=== PATIENT | female | born 1950 | race Caucasian/White ===

== ENCOUNTER 2019-06-06 19:33 | Emergency (ER) | payer MEDICARE ==
[~2019-06-06] VITALS: Ht 160 cm; Wt 94.3 kg
[~2019-06-06 19:33] MED LIST: ALBUTEROL SULF8.5 GM PO; AMIODARONE PO; ASPIR 8181 MG PO; BCOMPLEX PO; CLARITIN10 M2 PO; CRESTOR10 MG PO; DEPAKOTE ER500 MG PO; DEPO-ESTRADIO5 MG/ML IM; DIGOXIN125 MCG PO; DIVALPROEX SOD500 M1 PO; ESTRADIOL1 MG PO; FLUTICASONE PRO16 GM; FUROSEMIDE40 MG PO; LASIX80 MG PO; LEVAQUIN500 MG PO; LISINOPRIL10 MG PO; MEDROL4 MG/DOSE-; METOPROLOL SUCC25 MG PO; MUCINEX600 MG PO; NIACIN250 M1 PO; NIASPAN1000 MG PO; ONE-A-DAY ESSE1 EACH PO; POTASSIUM CHLO20 ME1 PO; PREDNISONE10 MG PO; PROAIR HFA INH8.5 GM; SYNTHROID25 MCG PO; TESSALON PERLE100 MG PO; TRAMADOL HCL100 MG PO; anoro ellipta INH; losartan PO
--- OUTSIDE RECORDS SUMMARY | 2019-06-06 19:36 | XMS REPORT ---
[facility] Address Unknown Phone Unavailable Care Team Providers Care Switchgear Repairer Name Role Phone Eligio LAW Unavailable Unavailable Problems This patient has no known problems. Allergies, Adverse Reactions, Alerts This patient has no known allergies or adverse reactions. Medications This patient has no known medications. Results Test Description Test Time Test Comments Text Results Atomic Results Result Comments BONE DXA DUAL ENERGY 2019-06-05 15:55:00 [place] [address] Patient Name: VIOLET FLOOD MR #: [id number] : 1950 Age/Sex: 69/F Req #: [id number] Adm Physician: Ordered by: MAGALIS LAW MD Report #: [id number] Location: DX Room/Bed: Procedure: [id number] DX/BONE DXA DUAL ENERGY Exam Date: Exam Time: REPORT STATUS: Signed Exam: Bone mineral density study. History: Osteopenia. Comparison: None Discussion: Evaluation of the left hip and lumbar spine was performed utilizing DEXA Hologic bone densitometer. The study is technically adequate. Left hip total bone mineral density: 0.806gm/cm2, T- score is -1.1, Z-score is 0.2. Left hip femoral neck bone mineral density: 0.627gm/cm2, T-score is -2.0, Z-score is -0.4. Lumbar spine total bone mineral density:1.012gm/cm2, T-score is-0.3, Z-score is 1.6. Impression: 1. Osteopenia of the left hip, fracture risk is increased 2. Normal bone mineral density of the lumbar spine, fracture risk is not increased. Least significant change (LSC) for bone mineral density as provided by video systems engineer is 0.023 g/cm2 for lumbar spine and 0.027 g/cm2 for total hip. 10 -year fracture risk per WHO Fracture Risk Assessment Tool (FRAX) for: Major osteoporotic fracture is 10.0% Hip fracture is 1.6% The above fracture probability is calculated for an untreated patient. Fracture probably may be lower if the patient has received treatment. All treatment decisions require clinical judgment and consideration of individual patient factors, including patient preferences, comorbidities, previous drug use and risk factors not captured in the FRAX model (e.g. frailty, falls, vitamin D deficiency, increased bone turnover, interval significant decline in BMD). The patient's fracture risk is compared to an age-matched control. Medical evaluation for secondary causes of low bone bone mineral density may be appropriate. Correlate clinically for the necessity and timing of the next bone mineral density study. Signed by: Dr. Papo Nicole M.D. on 06/05/2019 3:56 PM Dictated By: PAPO NICOLE MD, MD [id number] Transcribed By: SALENA on 06/05/19 3612 COPY TO: MAGALIS LAW MD CT ABDOMEN/PELVIS W 2019-06-04 16:07:00 [place] [address] Patient Name: VIOLET FLOOD MR #: [id number] : 1950 Age/Sex: 69/F Req #: [id number] Adm Physician: Ordered by: MAGALIS LAW MD Report #: [id number] Location: DX Room/Bed: Procedure: [id number] CT/CT ABDOMEN/PELVIS W Exam Date: 06/04/19 Exam Time: 1544 REPORT STATUS: Signed EXAMINATION: CT of the abdomen and pelvis with contr ast. TECHNIQUE: Spiral CT images of the abdomen and pelvis were performed from the lung bases to the lesser trochanters after the intravenous administration of 100 cc Isovue-370 and the oral administration of Gastrografin. Coronal and sagittal reformatted images were obtained. COMPARISON: None. CLINICAL HISTORY:Left lower quadrant pain DISCUSSION: ABDOMEN/PELVIS: LOWER THORAX:Median sternotomy wires partially visualized. Calcified granuloma in the left lower lobe. Linear and reticular opacities in the dependent lower lobes compatible with subsegmental atelectasis. No pleural or pericardial effusion. HEPATOBILIARY: 1.6 cm hypoattenuating lesion (5-10 Hounsfield units) in segment 8 at the dome compatible with a simple cyst. Subcentimeter hypoattenuating lesion in segment 8 is too small to further characterize but may represent an additional cyst. No additional focal hepatic lesion or intrahepatic biliary ductal dilatation. Multiple radiopaque calculi within the gallbladder lumen. No pericholecystic inflammation. No common bile duct filling defects. SPLEEN: No splenomegaly. PANCREAS: No focal masses or ductal dilatation. ADRENALS: No adrenal nodules. KIDNEYS/URETERS: No hydronephrosis, stones, or solid mass lesions. PELVIC ORGANS/BLADDER: Urinary bladder is collapsed and poorly evaluated. Uterus is not identified and has been removed. 2.5 cm simple cyst in the right adnexa. PERITONEUM/RETROPERITONEUM: No free air or fluid. LYMPH NODES: No pelvic sidewall, retroperitoneal, or mesenteric lymphadenopathy. VESSELS: Atherosclerotic calcification of the abdominal aorta, major branch vessels, and iliac arterial systems without aneurysmal dilatation. Incidental note of a circumaortic left renal vein. Portal vein, splenic vein, and central superior mesenteric vein are patent. GI TRACT: The large bowel shows no distention or wall thickening. There are scattered diverticula along the sigmoid colon without adjacent inflammatory change. The appendix is normal. There is no small bowel dilatation to suggest obstruction. BONES AND SOFT TISSUE: No osseous destructive lesions. Mild degenerative disc changes and facet arthropathy of the lower lumbar spine. No focal soft tissue abnormalities. IMPRESSION: No acute intra-abdominal or pelvic CT abnormalities. Cholelithiasis without CT findings of acute cholecystitis. Large bowel diverticulosis without evidence of diverticulitis. Atherosclerotic vascular disease. 2.5 cm right ovarian cyst without suspicious features is almost certainly benign. However, in a postmenopausal patient, a follow-up transvaginal pelvic ultrasound in one year is suggested to assess for stability or resolution. Signed by: Dr. Jia Steen M.D. on 06/04/2019 4:18 PM Dictated By: JIA STEEN MD [id number] Transcribed By: SALENA on 06/04/19 1618 COPY TO: MAGALIS LAW MD
--- NOTE | 2019-06-06 20:22 | Diagnostic Imaging Report ---
EXAMINATION: PA and lateral views of the chest. COMPARISON: None CLINICAL HISTORY: chest pain DISCUSSION: Lines/tubes: Sternotomy wires. Lungs: The lungs are well inflated and clear. No pneumonia or pulmonary edema. Pleura: No pleural effusion or pneumothorax. Heart and mediastinum: The cardiomediastinal silhouette is normal. Bones and soft tissues: No acute bony abnormalities. IMPRESSION: No acute cardiopulmonary abnormalities. Signed by: Dr. Saleem Broderick M.D. on 06/06/2019 8:19 PM
== END 2019-06-06 21:39 | disposition home or self-care (01) ==
LOC: ER 19:33
DX: R07.89 Other chest pain (principal); R10.13 Epigastric pain
CPT/HCPCS: 71046; 99282

== ENCOUNTER → 2020-02-20 | Outpatient (CLI) | payer MEDICARE ==
--- NOTE | 2020-02-20 14:20 | Diagnostic Imaging Report ---
HISTORY : Follicular cyst of the right adnexa COMPARISON : CT dated 06/04/2019 Comment: Ultrasound examination of the pelvis was performed transabdominally and transvaginally. Uterus is surgically absent. The ovaries are not well visualized due to overlying bowel gas. In the region of the right adnexa there is a hypoechoic cyst measuring 2.2 x 2.0 x 1.9 cm without suspicious solid component or internal vascularity. IMPRESSION : Stable 2.5 cm cyst of the right ovary. The ovaries themselves are not well evaluated by ultrasound technique due to overlying and adjacent bowel gas. Uterus is surgically absent. Signed by: Ricky Vizcarra MD on 02/20/2020 2:17 PM
== END ==
LOC: US 12:31
PROVIDERS: ATTEND Family Medicine
DX: N83.01 Follicular cyst of right ovary (principal)
CPT/HCPCS: 76830; 76856

== ENCOUNTER 2021-11-10 19:07 | Emergency (ER) | payer MEDICARE ==
[~2021-11-10] VITALS: Ht 160 cm; Wt 78.5 kg
[2021-11-10 20:39] LABS: BASOPHILS # (AUTO) 0.1 (0.0-0.1); BASOPHILS % 0.7 % (0.0-1.0); EOSINOPHILS # (AUTO) 0.3 (0.0-0.4); EOSINOPHILS % 3.1 % (0.0-6.0); HEMATOCRIT 31.5 % (34.2-44.1); HEMOGLOBIN 8.8 g/dL (12.0-16.0); LYMPHOCYTES # (AUTO) 1.3 (1.0-3.2); LYMPHOCYTES % 13.2 % (18.0-39.1); MEAN CORPUSCULAR HEMOGLOBIN 23.4 pg (28-32); MEAN CORPUSCULAR HGB CONC 27.9 g/dL (31-35); MEAN CORPUSCULAR VOLUME 83.8 fL (81-99); MONOCYTES # (AUTO) 0.9 (0.2-0.8); MONOCYTES % 9.7 % (4.4-11.3); NEUTROPHILS # (AUTO) 6.9 (2.1-6.9); NEUTROPHILS % 72.5 % (38.7-80.0); PLATELET COUNT 385 x10e3/uL (140-360); RED BLOOD COUNT 3.76 x10e6/uL (3.6-5.1); RED CELL DISTRIBUTION WIDTH 20.9 % (11.7-14.4)
[2021-11-10 21:00] LABS: ALBUMIN 2.8 g/dL (3.5-5.0); ALBUMIN/GLOBULIN RATIO 0.8 (0.8-2.0); ANION GAP 15.3 mmol/L (8-16); CALCIUM 8.9 mg/dL (8.4-10.2); CREATININE, SERUM 1.33 mg/dL (0.57-1.11); POTASSIUM 4.3 mmol/L (3.5-5.1)
[2021-11-10 21:08] LABS: CREATINE KINASE MB 0.6 ng/mL (0-5.0)
== END 2021-11-10 22:24 | disposition home or self-care (01) ==
LOC: ER 19:21
DX: R53.1 Weakness (principal); J44.9 Chronic obstructive pulmonary disease, unspecified; E78.5 Hyperlipidemia, unspecified; D64.9 Anemia, unspecified; E78.00 Pure hypercholesterolemia, unspecified; M10.9 Gout, unspecified; R94.31 Abnormal electrocardiogram [ECG] [EKG]
CPT/HCPCS: 36415; 71045; 80053; 82550; 82553; 83880; 84484; 85025; 93005; 99283

== ENCOUNTER → 2022-01-14 | Outpatient (CLI) | payer MEDICARE ==
[~2022-01-14] MED LIST changes: +ALLOPURINOL300 MG PO; +ATORVASTATIN CA10 MG PO; +DOCUSATE SODIU100 MG PO; +DYMISTA NASAL S23 GM INH; +IOPAMIDOL 370 MG/ML 100 ML INFUS..BTL INJ ONE; +ONDANSETRON ODT4 MG PO; +SODIUM CHLORIDE 0.9% 500ML 500 ML ONE; +TRICOR145 MG PO
[2022-01-14 13:15] LABS: CREATININE, SERUM 1.42 mg/dL (0.57-1.11)
== END ==
LOC: CT 11:55
PROVIDERS: ATTEND Internal Medicine Gastroenterology
DX: R11.0 Nausea (principal); K62.5 Hemorrhage of anus and rectum
CPT/HCPCS: 36415; 74177; 82565; 84520; 96360; J7040; Q9967

== ENCOUNTER 2022-02-23 08:07 | Inpatient (IN) | payer MEDICARE ==
[~2022-02-23 08:07] MED LIST changes: -IOPAMIDOL 370 MG/ML 100 ML INFUS..BTL INJ ONE; -SODIUM CHLORIDE 0.9% 500ML 500 ML ONE
[2022-02-23 09:08] LABS: BASOPHILS % 0.4 % (0.0-1.0); EOSINOPHILS # (AUTO) 0.1 (0.0-0.4); EOSINOPHILS % 1.5 % (0.0-6.0); HEMATOCRIT 37.8 % (34.2-44.1); HEMOGLOBIN 11.3 g/dL (12.0-16.0); LYMPHOCYTES # (AUTO) 1.2 (1.0-3.2); LYMPHOCYTES % 13.2 % (18.0-39.1); MEAN CORPUSCULAR HGB CONC 29.9 g/dL (31-35); MEAN CORPUSCULAR VOLUME 86.9 fL (81-99); MONOCYTES % 10.5 % (4.4-11.3); NEUTROPHILS % 74.2 % (38.7-80.0); PLATELET COUNT 293 x10e3/uL (140-360); RED BLOOD COUNT 4.35 x10e6/uL (3.6-5.1); RED CELL DISTRIBUTION WIDTH 23.6 % (11.7-14.4)
[2022-02-23 09:37] LABS: ALBUMIN 3.6 g/dL (3.5-5.0); ALBUMIN/GLOBULIN RATIO 1.2 (0.8-2.0); ANION GAP 16.2 mmol/L (8-16); CREATININE, SERUM 1.07 mg/dL (0.57-1.11); POTASSIUM 3.2 mmol/L (3.5-5.1)
[2022-02-23] MEDS ORDERED: HYDROMORPHONE 1MG/1ML INJ ONE (09:49)
[2022-02-23] MEDS ORDERED: ACETAMINOPHEN 1000 MG/100 ML 100 ML IV ONE (09:49)
[2022-02-23] MEDS ORDERED: ALBUMIN 25% 12.5GM 50ML 50 ML IV ONE (09:57)
[2022-02-23] MEDS ORDERED: ALBUTEROL SULFATE HFA 8GM INHALATION AEROSOL INH PRN (12:15)
[2022-02-23] MEDS: SODIUM CHLORIDE 0.9% 250ML IRRIG IR SCH ×2 (12:15→15:11)
[2022-02-23] MEDS ORDERED: ACETAMINOPHEN 1000 MG/100 ML IV PRN (12:15)
[2022-02-23] MEDS ORDERED: ALBUTEROL SULFATE HFA 8GM INHALATION AEROSOL INH SCH (12:15)
[2022-02-23] MEDS ORDERED: SUGAMMADEX SODIUM 200 MG/2 ML VIAL IV ONE (12:20)
[2022-02-23] MEDS ORDERED: EPHEDRINE SULFATE INJ 50 MG/ML VIAL ONE (12:37)
[2022-02-23] MEDS ORDERED: FENTANYL CITRATE/PF 100MCG/2 ML INJ ONE ×2 (12:41→17:34)
[2022-02-23 13:55] VITALS: BP 98/45
[2022-02-23] MEDS ORDERED: ALBUTEROL SULF 0.083% NEB SOLN 3 ML NEB NEB PRN (14:30)
[2022-02-23] MEDS ORDERED: SODIUM CHLORIDE 0.9% 1000ML 1,000 ML IV SCH (14:45)
[2022-02-23] MEDS: METOPROLOL SUCCINATE 25 MG TAB XL PO SCH (15:44)
[2022-02-23] MEDS ORDERED: METOPROLOL TARTRATE INJ 1 MG/ML VIAL IV PRN ×2 (15:45→17:45)
[2022-02-23] MEDS: HYDROMORPHONE 1MG/1ML INJ IV PRN ×2 (17:00→22:22)
[2022-02-23] MEDS ORDERED: MIDAZOLAM HCL 2 MG/2 ML VIAL ONE (17:34)
[2022-02-23] MEDS ORDERED: HYDRALAZINE HCL 20 MG/ML VIAL IV PRN (17:45)
[2022-02-23] MEDS ORDERED: INFLUENZA VIRUS VAC SPLIT INJ 0.5 ML SYR IM SCH (18:04)
[2022-02-23] MEDS ORDERED: PNEUMOCOCCAL VACCINE POLYVALENT 23 MCG/0.5 ML VIAL IM SCH (18:04)
[2022-02-23] MEDS: IRON SUCROSE 100 MG in SODIUM CHLORIDE 0.9% 100 ML IV SCH (18:44)
[2022-02-23] MEDS: KCL 20MEQ/.9 SOD CHL 1,000 ML IV SCH (18:44)
[2022-02-23 20:00] VITALS: BP 96/41
[2022-02-24] VITALS (8 sets, daily range): BP systolic 96–171; BP diastolic 41–103
[2022-02-24] MEDS: SODIUM CHLORIDE 0.9% 250ML IRRIG IR SCH ×7 (00:12→22:15)
[2022-02-24] MEDS: HYDROMORPHONE 1MG/1ML INJ IV PRN ×7 (02:08→22:10)
[2022-02-24] MEDS: KCL 20MEQ/.9 SOD CHL 1,000 ML IV SCH ×2 (04:56→14:47)
[2022-02-24] MEDS: METOPROLOL SUCCINATE 25 MG TAB XL PO SCH ×2 (08:33→17:27)
[2022-02-24 09:28] LABS: BASOPHILS % 0.1 % (0.0-1.0); HEMATOCRIT 31.2 % (34.2-44.1); HEMOGLOBIN 9.5 g/dL (12.0-16.0); LYMPHOCYTES # (AUTO) 0.6 (1.0-3.2); MEAN CORPUSCULAR HEMOGLOBIN 26.3 pg (28-32); MEAN CORPUSCULAR HGB CONC 30.4 g/dL (31-35); MEAN CORPUSCULAR VOLUME 86.4 fL (81-99); MONOCYTES # (AUTO) 1.3 (0.2-0.8); MONOCYTES % 8.1 % (4.4-11.3); NEUTROPHILS # (AUTO) 13.8 (2.1-6.9); NEUTROPHILS % 87.1 % (38.7-80.0); PLATELET COUNT 277 x10e3/uL (140-360); RED BLOOD COUNT 3.61 x10e6/uL (3.6-5.1); RED CELL DISTRIBUTION WIDTH 23.8 % (11.7-14.4)
[2022-02-24 09:44] LABS: ANION GAP 14.2 mmol/L (8-16); CALCIUM 9.3 mg/dL (8.4-10.2); CREATININE, SERUM 0.93 mg/dL (0.57-1.11); POTASSIUM 4.2 mmol/L (3.5-5.1)
[2022-02-24 10:00] LABS: MAGNESIUM 2.2 MG/DL (1.3-2.1); PHOSPHORUS 4.4 MG/DL (2.3-4.7)
[2022-02-24] MEDS ORDERED: LIDOCAINE HCL 2% LOCAL INJ 5 ML SDV VIAL INJ ONE (14:34)
[2022-02-24] MEDS ORDERED: EPHEDRINE SULFATE INJ 50 MG/ML VIAL IV ONE (14:34)
[2022-02-24] MEDS ORDERED: ONDANSETRON HCL INJ 2MG/ML 2ML 2 MG/ML VIAL IV ONE (14:34)
[2022-02-24] MEDS ORDERED: PROPOFOL IV EMULSION 10 MG/ML 20 ML VIAL IV ONE (14:34)
[2022-02-24] MEDS ORDERED: POVIDONE IODINE 0.05% 0.05 % ML PO ONE (14:34)
[2022-02-24] MEDS ORDERED: DEXAMETHASONE SOD PHOS INJ 4 MG/ML SDV IV ONE (14:34)
[2022-02-24] MEDS ORDERED: ROCURONIUM BROMIDE 10 MG/ML 5ML VIAL IV ONE (14:34)
[2022-02-24] MEDS ORDERED: SEVOFLURANE INHAL SOLN 250 ML PEN BTL INH ONE (14:34)
[2022-02-24] MEDS ORDERED: NEOSTIGMINE 1 MG/ML 10ML VIAL IV ONE (14:34)
[2022-02-24] MEDS ORDERED: CEFTRIAXONE 1 GM VIAL IV ONE (14:34)
[2022-02-24] MEDS ORDERED: GLYCOPYRROLATE INJ 0.2 MG/ML VIAL IV ONE (14:34)
[2022-02-24] MEDS: IRON SUCROSE 100 MG in SODIUM CHLORIDE 0.9% 100 ML IV SCH (14:47)
[2022-02-25] VITALS (7 sets, daily range): BP systolic 101–157; BP diastolic 51–75
[2022-02-25] MEDS: SODIUM CHLORIDE 0.9% 250ML IRRIG IR SCH ×5 (00:15→16:15)
[2022-02-25] MEDS: HYDROMORPHONE 1MG/1ML INJ IV PRN ×6 (02:10→20:20)
[2022-02-25] MEDS ORDERED: KCL 20MEQ/.9 SOD CHL 1,000 ML IV SCH (04:30)
[2022-02-25] MEDS: METOPROLOL SUCCINATE 25 MG TAB XL PO SCH ×3 (09:00→17:34)
[2022-02-25] MEDS ORDERED: FUROSEMIDE INJ 10 MG/ML 4 ML VIAL IV ONE (09:30)
[2022-02-25] MEDS ORDERED: POTASSIUM CHLORIDE 20MEQ/100ML 100 ML IV ONE (09:30)
[2022-02-25 09:37] LABS: BASOPHILS # (AUTO) 0.1 (0.0-0.1); BASOPHILS % 0.4 % (0.0-1.0); EOSINOPHILS # (AUTO) 0.1 (0.0-0.4); EOSINOPHILS % 0.2 % (0.0-6.0); HEMATOCRIT 34.6 % (34.2-44.1); LYMPHOCYTES # (AUTO) 1.3 (1.0-3.2); LYMPHOCYTES % 6.1 % (18.0-39.1); MEAN CORPUSCULAR HEMOGLOBIN 26.3 pg (28-32); MEAN CORPUSCULAR HGB CONC 28.9 g/dL (31-35); MEAN CORPUSCULAR VOLUME 91.1 fL (81-99); MONOCYTES % 9.3 % (4.4-11.3); NEUTROPHILS # (AUTO) 17.7 (2.1-6.9); NEUTROPHILS % 82.8 % (38.7-80.0); PLATELET COUNT 344 x10e3/uL (140-360); RED CELL DISTRIBUTION WIDTH 24.5 % (11.7-14.4)
[2022-02-25 09:57] LABS: ANION GAP 16.9 mmol/L (8-16); CALCIUM 9.9 mg/dL (8.4-10.2); CREATININE, SERUM 0.97 mg/dL (0.57-1.11); POTASSIUM 4.9 mmol/L (3.5-5.1)
[2022-02-25] MEDS: ONDANSETRON HCL INJ 2MG/ML 2ML 2 MG/ML VIAL IV PRN ×4 (10:15→17:09)
[2022-02-25] MEDS ORDERED: SODIUM CHLORIDE 0.9% 250ML 250 ML ONE (12:54)
[2022-02-25 13:19] LABS: LYMPHOCYTES % (MANUAL) 6 % (19-48); MONOCYTES % (MANUAL) 9 % (3.4-9.0); MYELOCYTES % (MANUAL) 1 % (0-0); NEUTROPHILS % (MANUAL) 84 % (40-74); PLATELET ESTIMATE ADEQUATE; PLATELET MORPHOLOGY COMMENT NORMAL; RBC MORPHOLOGY COMMENT ABNORMAL
[2022-02-25 13:20] LABS: ACANTHOCYTES FEW; ANISOCYTOSIS MODERATE; ELLIPTOCYTE, RBC SLIGHT; OVALOCYTES MODERATE; POIKILOCYTOSIS MODERATE
[2022-02-25 13:21] LABS: HYPOCHROMASIA SLIGHT
[2022-02-25] MEDS: IRON SUCROSE 100 MG in SODIUM CHLORIDE 0.9% 100 ML IV SCH ×2 (20:00→20:25)
[2022-02-25] MEDS: BISACODYL 10 MG SUPP PR SCH (20:35)
[2022-02-25] MEDS: ALBUTEROL/IPRATROPIUM 3 ML NEB NEB PRN (21:05)
[2022-02-26] VITALS (7 sets, daily range): BP systolic 104–147; BP diastolic 52–75
[2022-02-26] MEDS: ALBUTEROL/IPRATROPIUM 3 ML NEB NEB PRN ×4 (01:30→19:55)
[2022-02-26] MEDS: ONDANSETRON HCL INJ 2MG/ML 2ML 2 MG/ML VIAL IV PRN ×2 (02:00→21:10)
[2022-02-26] MEDS: HYDROMORPHONE 1MG/1ML INJ IV PRN ×2 (02:00→06:50)
[2022-02-26 07:14] LABS: BASOPHILS # (AUTO) 0.1 (0.0-0.1); BASOPHILS % 0.4 % (0.0-1.0); EOSINOPHILS % 0.1 % (0.0-6.0); HEMATOCRIT 31.6 % (34.2-44.1); HEMOGLOBIN 9.1 g/dL (12.0-16.0); LYMPHOCYTES # (AUTO) 0.9 (1.0-3.2); MEAN CORPUSCULAR HEMOGLOBIN 26.3 pg (28-32); MEAN CORPUSCULAR HGB CONC 28.8 g/dL (31-35); MEAN CORPUSCULAR VOLUME 91.3 fL (81-99); MONOCYTES # (AUTO) 1.6 (0.2-0.8); MONOCYTES % 9.5 % (4.4-11.3); NEUTROPHILS # (AUTO) 14.4 (2.1-6.9); PLATELET COUNT 279 x10e3/uL (140-360); RED BLOOD COUNT 3.46 x10e6/uL (3.6-5.1); RED CELL DISTRIBUTION WIDTH 24.5 % (11.7-14.4)
[2022-02-26 07:41] LABS: ANION GAP 18.6 mmol/L (8-16); CALCIUM 9.9 mg/dL (8.4-10.2); CREATININE, SERUM 0.78 mg/dL (0.57-1.11); POTASSIUM 4.6 mmol/L (3.5-5.1)
[2022-02-26] MEDS: METOPROLOL SUCCINATE 25 MG TAB XL PO SCH ×2 (10:00→20:59)
[2022-02-26] MEDS ORDERED: TRAMADOL HCL PO PRN (10:15)
[2022-02-26] MEDS: BISACODYL 10 MG SUPP PR SCH (10:47)
[2022-02-26] MEDS: ACETAMINOPHEN 1000 MG/100 ML IV PRN ×2 (11:30→17:09)
[2022-02-26] MEDS: Azelastine/Fluticasone (Dymista Nasal Spray) NS SCH (17:00)
[2022-02-26] MEDS ORDERED: DEPAKOTE DELAYED-RELEASE TAB 500 MG PO SCH (17:00)
[2022-02-26] MEDS ORDERED: FUROSEMIDE INJ 10 MG/ML 4 ML VIAL IV ONE (18:15)
[2022-02-26] MEDS: DEPAKOTE DELAYED-RELEASE TAB 500 MG PO SCH (20:43)
[2022-02-26] MEDS: IRON SUCROSE 100 MG in SODIUM CHLORIDE 0.9% 100 ML IV SCH (20:43)
[2022-02-26] MEDS: Morphine 2mg Syringe 2 MG/ML SYR IV PRN (21:10)
[2022-02-27] VITALS (8 sets, daily range): BP systolic 98–138; BP diastolic 45–80
[2022-02-27] MEDS: ALBUTEROL/IPRATROPIUM 3 ML NEB NEB PRN ×3 (00:20→23:50)
[2022-02-27] MEDS: ONDANSETRON HCL INJ 2MG/ML 2ML 2 MG/ML VIAL IV PRN ×2 (04:00→10:10)
[2022-02-27] MEDS: Morphine 2mg Syringe 2 MG/ML SYR IV PRN ×2 (04:00→10:10)
[2022-02-27 05:56] LABS: BASOPHILS % 0.3 % (0.0-1.0); EOSINOPHILS # (AUTO) 0.2 (0.0-0.4); EOSINOPHILS % 1.6 % (0.0-6.0); HEMATOCRIT 29.5 % (34.2-44.1); HEMOGLOBIN 8.8 g/dL (12.0-16.0); LYMPHOCYTES # (AUTO) 0.8 (1.0-3.2); LYMPHOCYTES % 5.7 % (18.0-39.1); MEAN CORPUSCULAR HEMOGLOBIN 26.6 pg (28-32); MEAN CORPUSCULAR HGB CONC 29.8 g/dL (31-35); MEAN CORPUSCULAR VOLUME 89.1 fL (81-99); MONOCYTES % 7.2 % (4.4-11.3); NEUTROPHILS # (AUTO) 11.8 (2.1-6.9); NEUTROPHILS % 84.3 % (38.7-80.0); PLATELET COUNT 310 x10e3/uL (140-360); RED BLOOD COUNT 3.31 x10e6/uL (3.6-5.1); RED CELL DISTRIBUTION WIDTH 24.6 % (11.7-14.4)
[2022-02-27 06:22] LABS: ANION GAP 13.8 mmol/L (8-16); CALCIUM 10.1 mg/dL (8.4-10.2); CREATININE, SERUM 0.75 mg/dL (0.57-1.11); POTASSIUM 3.8 mmol/L (3.5-5.1)
[2022-02-27] MEDS: LEVOTHYROXINE SODIUM 25 MCG TABLET PO SCH (06:25)
[2022-02-27] MEDS: METOPROLOL SUCCINATE 25 MG TAB XL PO SCH ×2 (09:00→20:45)
[2022-02-27] MEDS: Azelastine/Fluticasone (Dymista Nasal Spray) NS SCH ×2 (09:00→17:00)
[2022-02-27] MEDS: DEPAKOTE DELAYED-RELEASE TAB 500 MG PO SCH ×2 (09:27→20:45)
[2022-02-27] MEDS ORDERED: SODIUM CHLORIDE 0.9% 250ML 250 ML ONE (12:01)
[2022-02-27] MEDS ORDERED: ACETAMINOPHEN 1000 MG/100 ML 100 ML IV ONE (12:01)
[2022-02-27] MEDS: ACETAMINOPHEN 1000 MG/100 ML IV PRN ×2 (12:03→17:19)
[2022-02-27] MEDS: FUROSEMIDE 40 MG TAB PO SCH (17:19)
[2022-02-27] MEDS: TRAMADOL HCL 50 MG TAB PO PRN (18:23)
[2022-02-27] MEDS: IRON SUCROSE 100 MG in SODIUM CHLORIDE 0.9% 100 ML IV SCH (20:45)
[2022-02-27] MEDS: BISACODYL 10 MG SUPP PR SCH (21:00)
[2022-02-28] VITALS (8 sets, daily range): BP systolic 117–134; BP diastolic 46–75
[2022-02-28] MEDS: LEVOTHYROXINE SODIUM 25 MCG TABLET PO SCH (06:25)
[2022-02-28] MEDS: FUROSEMIDE 40 MG TAB PO SCH (06:25)
[2022-02-28] MEDS: ACETAMINOPHEN 1000 MG/100 ML IV PRN (06:40)
[2022-02-28] MEDS: ALBUTEROL/IPRATROPIUM 3 ML NEB NEB PRN ×3 (07:45→23:55)
[2022-02-28] MEDS: BISACODYL 10 MG SUPP PR SCH (08:00)
[2022-02-28] MEDS: DEPAKOTE DELAYED-RELEASE TAB 500 MG PO SCH ×2 (08:28→21:04)
[2022-02-28] MEDS: METOPROLOL SUCCINATE 25 MG TAB XL PO SCH ×2 (08:29→21:04)
[2022-02-28] MEDS: Azelastine/Fluticasone (Dymista Nasal Spray) NS SCH ×2 (09:00→17:00)
[2022-02-28] MEDS: FUROSEMIDE INJ 10 MG/ML 4 ML VIAL IV SCH ×2 (10:39→14:45)
[2022-02-28] MEDS: POTASSIUM CHLORIDE 10MEQ EA PO SCH ×2 (10:40→16:46)
[2022-02-28] MEDS: TRAMADOL HCL 50 MG TAB PO PRN (10:41)
[2022-02-28] MEDS: Morphine 2mg Syringe 2 MG/ML SYR IV PRN ×2 (14:52→21:39)
[2022-02-28] MEDS: ONDANSETRON HCL INJ 2MG/ML 2ML 2 MG/ML VIAL IV PRN (21:38)
[2022-03-01 00:54] VITALS: BP 101/50
[2022-03-01] MEDS: TRAMADOL HCL 50 MG TAB PO PRN ×2 (01:20→12:15)
[2022-03-01] MEDS: Morphine 2mg Syringe 2 MG/ML SYR IV PRN ×3 (03:35→16:42)
[2022-03-01 05:20] VITALS: BP 126/55
[2022-03-01 06:00] LABS: BASOPHILS % 0.4 % (0.0-1.0); EOSINOPHILS # (AUTO) 0.4 (0.0-0.4); EOSINOPHILS % 6.1 % (0.0-6.0); HEMATOCRIT 32.3 % (34.2-44.1); HEMOGLOBIN 9.8 g/dL (12.0-16.0); LYMPHOCYTES # (AUTO) 1.1 (1.0-3.2); LYMPHOCYTES % 15.6 % (18.0-39.1); MEAN CORPUSCULAR HEMOGLOBIN 26.4 pg (28-32); MEAN CORPUSCULAR HGB CONC 30.3 g/dL (31-35); MEAN CORPUSCULAR VOLUME 87.1 fL (81-99); MONOCYTES # (AUTO) 0.7 (0.2-0.8); MONOCYTES % 9.6 % (4.4-11.3); NEUTROPHILS # (AUTO) 4.9 (2.1-6.9); NEUTROPHILS % 66.8 % (38.7-80.0); PLATELET COUNT 324 x10e3/uL (140-360); RED BLOOD COUNT 3.71 x10e6/uL (3.6-5.1); RED CELL DISTRIBUTION WIDTH 24.5 % (11.7-14.4)
[2022-03-01 06:17] LABS: ANION GAP 14.7 mmol/L (8-16); CALCIUM 9.1 mg/dL (8.4-10.2); CREATININE, SERUM 0.7 mg/dL (0.57-1.11); POTASSIUM 3.7 mmol/L (3.5-5.1)
[2022-03-01] MEDS ORDERED: LEVOTHYROXINE SODIUM 75 MCG TAB PO SCH (06:30)
[2022-03-01 07:30] VITALS: BP 134/67
[2022-03-01] MEDS: FUROSEMIDE INJ 10 MG/ML 4 ML VIAL IV SCH ×2 (08:41→12:15)
[2022-03-01 08:58] VITALS: BP 134/67
[2022-03-01] MEDS: Azelastine/Fluticasone (Dymista Nasal Spray) NS SCH ×2 (09:00→16:48)
[2022-03-01] MEDS: METOPROLOL SUCCINATE 25 MG TAB XL PO SCH (09:03)
[2022-03-01] MEDS: DEPAKOTE DELAYED-RELEASE TAB 500 MG PO SCH (09:03)
[2022-03-01] MEDS: POTASSIUM CHLORIDE 10MEQ EA PO SCH ×2 (09:03→16:38)
[2022-03-01] MEDS: ONDANSETRON HCL INJ 2MG/ML 2ML 2 MG/ML VIAL IV PRN ×2 (09:11→16:42)
[2022-03-01 11:45] VITALS: BP 122/55
[2022-03-01] MEDS: ALBUTEROL/IPRATROPIUM 3 ML NEB NEB PRN (12:30)
[2022-03-01 16:31] VITALS: BP 114/64
[2022-03-01] MEDS ORDERED: PNEUMOCOCCAL VACCINE POLYVALENT 23 MCG/0.5 ML VIAL IM SCH (18:15)
[2022-03-01] MEDS ORDERED: INFLUENZA VIRUS VAC SPLIT INJ 0.5 ML SYR IM SCH (18:15)
[2022-03-01] MEDS ORDERED: PANTOPRAZOLE SOD 40 MG TABEC PO SCH (20:00)
[2022-03-02] MEDS ORDERED: FUROSEMIDE 40 MG TAB PO SCH (08:00)
== END 2022-03-01 19:19 | disposition home or self-care (01) | DRG 329 ==
LOC: OR 08:07 → PACU V 12:31 → MED/SURG 13:55
PROVIDERS: ADMIT Surgery; ATTEND Surgery
PROC: 0DTF0ZZ Resection of Right Large Intestine, Open Approach (ICD-10-PCS; principal; 2022-02-23 09:54)
PROC: 05HY33Z Insertion of Infusion Device into Upper Vein, Percutaneous Approach (ICD-10-PCS; 2022-02-27)
DX: C18.4 Malignant neoplasm of transverse colon (principal); I50.23 Acute on chronic systolic (congestive) heart failure; I11.0 Hypertensive heart disease with heart failure; M10.9 Gout, unspecified; J45.909 Unspecified asthma, uncomplicated; E03.9 Hypothyroidism, unspecified; I25.10 Atherosclerotic heart disease of native coronary artery without angina pectoris; J43.9 Emphysema, unspecified; Z79.01 Long term (current) use of anticoagulants; E78.5 Hyperlipidemia, unspecified; D64.9 Anemia, unspecified; M19.90 Unspecified osteoarthritis, unspecified site; Z95.3 Presence of xenogenic heart valve; E87.6 Hypokalemia; E87.8 Other disorders of electrolyte and fluid balance, not elsewhere classified; Z20.822 Contact with and (suspected) exposure to COVID-19; Z88.1 Allergy status to other antibiotic agents; Z91.013 Allergy to seafood; D50.9 Iron deficiency anemia, unspecified
CPT/HCPCS: 0223U; 36415; 80048; 80053; 83735; 84100; 85025; 88305; 88309; 90732; 94640; 94799; J0694; J0696; J1100; J1170; J1756; J1940; J2001; J2250; J2270; J2405; J2710; J3010; J3480; J7050